=== PATIENT | male | born 1955 | race Asian ===

== ENCOUNTER → 2017-11-01 | Outpatient (CLI) | payer BC ==
[2017-11-01 09:57] LABS: BASOPHILS % 0.8 % (0.0-2.0); EOSINOPHILS % 6.5 % (0.0-5.0); HEMATOCRIT. 45.2 % (42.0-52.0); HEMOGLOBIN. 15.2 g/dL (14.0-18.0); LYMPHOCYTES % 31.6 % (20.0-50.0); MEAN PLATELET VOLUME 8.4 fl (7.4-10.4); MONOCYTES % 9.6 % (2.0-8.0); NEUTROPHILS % 51.5 % (40.0-76.0); PLATELET 223 x1000/uL (130-400); RED BLOOD CELL COUNT 4.91 mill/uL (4.7-6.1); RED CELL DISTRIBUTION WIDTH 12.7 % (11.6-14.6)
[2017-11-01 10:17] LABS: CARBON DIOXIDE 29 mEq/L (21-32); CHLORIDE 109 mEq/L (98-107); HDL CHOLESTEROL 30 mg/dL (40-59); LDL CHOLESTEROL 76 mg/dL (5-100)
== END | disposition home or self-care (01) ==
LOC: LAB 09:07
PROVIDERS: ATTEND Family Medicine
DX: I10 Essential (primary) hypertension (principal); E78.5 Hyperlipidemia, unspecified
CPT/HCPCS: 36415; 80053; 80061; 85025

== ENCOUNTER 2018-04-02 20:09 | Inpatient (IN) | payer BC ==
[~2018-04-02] VITALS: Ht 167.6 cm; Wt 63.5 kg
[2018-04-02] MEDS ORDERED: ALBUTEROL (0.083%) 2.5MG/3ML NEB HHN STA (21:36)
[2018-04-02] MEDS ORDERED: IPRATROPIUM BROMIDE (0.02%) 0.5MG/2.5ML NEB HHN STA (21:36)
[2018-04-02 23:17] LABS: BASOPHILS % 0.7 % (0.0-2.0); EOSINOPHILS % 1.6 % (0.0-5.0); HEMOGLOBIN. 15.4 g/dL (14.0-18.0); LYMPHOCYTES % 25.2 % (20.0-50.0); MEAN CORPUSCULAR HEMOGLOBIN 31.4 pg (28.0-32.0); MEAN CORPUSCULAR VOLUME 93.9 fL (80.0-94.0); MEAN PLATELET VOLUME 8.4 fl (7.4-10.4); MONOCYTES % 9.8 % (2.0-8.0); NEUTROPHILS % 62.7 % (40.0-76.0); PLATELET 235 x1000/uL (130-400); RED CELL DISTRIBUTION WIDTH 13.6 % (11.6-14.6)
[2018-04-02 23:19] LABS: CHLORIDE 108 mEq/L (98-107)
[2018-04-02] MEDS ORDERED: AZITHROMYCIN 500 MG in DEXT 5% WATER 250 ML IV SCH (23:45)
[2018-04-02] MEDS ORDERED: CEFTRIAXONE 2 G PREMIX 50 ML IV ONE (23:45)
[2018-04-03] VITALS (7 sets, daily range): BP systolic 103–134; BP diastolic 55–90
[2018-04-03] MEDS ORDERED: IOHEXOL-350 100 ML BOTTLE ONE (02:25)
[2018-04-03] MEDS ORDERED: AMLO10TA4 PO (04:31)
[2018-04-03] MEDS ORDERED: LATA2.5D2 EACHEYE (04:31)
[2018-04-03] MEDS ORDERED: LIP40 PO (04:31)
[2018-04-03] MEDS ORDERED: ASPI-1159 PO (04:31)
[2018-04-03] MEDS ORDERED: CEFTRIAXONE 1 G PREMIX 50 ML IV SCH (04:45)
[2018-04-03] MEDS: ACETAMINOPHEN 325MG TABLET PO PRN ×2 (04:59→21:18)
[2018-04-03] MEDS ORDERED: ENOXAPARIN 40MG/0.4ML SYR SUBCUT SCH (09:00)
[2018-04-03] MEDS ORDERED: ASPIRIN 81MG EC TABLET PO SCH (09:00)
[2018-04-03] MEDS: AMLODIPINE 10MG TABLET PO SCH (11:39)
[2018-04-03] MEDS ORDERED: ATORVASTATIN CALCIUM 40MG TABLET PO SCH (21:00)
[2018-04-03] MEDS: LATANOPROST 0.005% OPHTH DROPS 2.5ML EACHEYE SCH (21:07)
[2018-04-03] MEDS: CEFTRIAXONE 1 G PREMIX 50 ML IV SCH (22:35)
[2018-04-03] MEDS: ZOLPIDEM TARTRATE 5MG TABLET PO PRN (23:29)
[2018-04-03] MEDS: AZITHROMYCIN 500 MG in DEXT 5% WATER 250 ML IV SCH (23:29)
[2018-04-04] VITALS: BP 109/66
[2018-04-04 04:00] VITALS: BP 114/62
[2018-04-04 06:37] LABS: BASOPHILS % 0.9 % (0.0-2.0); EOSINOPHILS % 6.9 % (0.0-5.0); HEMATOCRIT. 40.5 % (42.0-52.0); HEMOGLOBIN. 13.6 g/dL (14.0-18.0); LYMPHOCYTES % 38.4 % (20.0-50.0); MEAN CORPUSCULAR HEMOGLOBIN 31.7 pg (28.0-32.0); MEAN CORPUSCULAR VOLUME 94.2 fL (80.0-94.0); MEAN PLATELET VOLUME 8.7 fl (7.4-10.4); MONOCYTES % 11.8 % (2.0-8.0); PLATELET 203 x1000/uL (130-400); RED BLOOD CELL COUNT 4.29 mill/uL (4.7-6.1); RED CELL DISTRIBUTION WIDTH 13.2 % (11.6-14.6)
[2018-04-04 08:00] VITALS: BP 115/63
[2018-04-04] MEDS: ACETAMINOPHEN 325MG TABLET PO PRN (08:42)
[2018-04-04] MEDS: AMLODIPINE 10MG TABLET PO SCH (08:42)
[2018-04-04 12:00] VITALS: BP 106/52
[2018-04-04 16:00] VITALS: BP 93/43
[2018-04-04 20:00] VITALS: BP 120/66
[2018-04-04] MEDS: LATANOPROST 0.005% OPHTH DROPS 2.5ML EACHEYE SCH (22:21)
[2018-04-04] MEDS: CEFTRIAXONE 1 G PREMIX 50 ML IV SCH (22:21)
[2018-04-04] MEDS: ZOLPIDEM TARTRATE 5MG TABLET PO PRN (23:22)
[2018-04-04] MEDS: AZITHROMYCIN 500 MG in DEXT 5% WATER 250 ML IV SCH (23:22)
[2018-04-04] MEDS: ATORVASTATIN CALCIUM 20MG TABLET PO SCH (23:23)
[2018-04-05] VITALS: BP 108/72
[2018-04-05] MEDS: ACETAMINOPHEN 325MG TABLET PO PRN (00:57)
[2018-04-05 04:00] VITALS: BP 112/65
[2018-04-05 08:00] VITALS: BP 105/49
[2018-04-05] MEDS: AMLODIPINE 10MG TABLET PO SCH (08:21)
[2018-04-05 11:34] VITALS: BP 115/70
[2018-04-05 16:00] VITALS: BP 122/70
[2018-04-05 20:00] VITALS: BP 117/69
[2018-04-05] MEDS: ATORVASTATIN CALCIUM 20MG TABLET PO SCH (21:48)
[2018-04-05] MEDS: LATANOPROST 0.005% OPHTH DROPS 2.5ML EACHEYE SCH (21:49)
[2018-04-05] MEDS: AZITHROMYCIN 500 MG TABLET PO SCH (23:15)
[2018-04-05] MEDS: CEFTRIAXONE 1 G PREMIX 50 ML IV SCH (23:15)
[2018-04-06] VITALS: BP 103/57
[2018-04-06] MEDS: ZOLPIDEM TARTRATE 5MG TABLET PO PRN (01:08)
[2018-04-06 04:00] VITALS: BP 114/70
[2018-04-06 08:00] VITALS: BP 119/68
[2018-04-06] MEDS: AMLODIPINE 10MG TABLET PO SCH (09:31)
[2018-04-06 12:00] VITALS: BP 116/68
[2018-04-06] MEDS: ACETAMINOPHEN 325MG TABLET PO PRN (14:46)
[2018-04-06 16:00] VITALS: BP 112/53
[2018-04-06 20:00] VITALS: BP 127/74
[2018-04-06] MEDS: ATORVASTATIN CALCIUM 20MG TABLET PO SCH (21:27)
[2018-04-06] MEDS: LATANOPROST 0.005% OPHTH DROPS 2.5ML EACHEYE SCH (21:28)
[2018-04-06] MEDS: CEFTRIAXONE 1 G PREMIX 50 ML IV SCH (23:15)
[2018-04-06] MEDS: AZITHROMYCIN 500 MG TABLET PO SCH (23:15)
[2018-04-07] VITALS: BP 125/61
[2018-04-07] MEDS: ZOLPIDEM TARTRATE 5MG TABLET PO PRN (00:24)
[2018-04-07 04:00] VITALS: BP 121/61
[2018-04-07] MEDS: AMLODIPINE 10MG TABLET PO SCH (08:32)
[2018-04-07 08:45] VITALS: BP 106/59
[2018-04-07 12:49] VITALS: BP 128/76
[2018-04-07 16:50] VITALS: BP 154/74
[2018-04-07 19:49] VITALS: BP 120/61
[2018-04-07] MEDS: LATANOPROST 0.005% OPHTH DROPS 2.5ML EACHEYE SCH (20:40)
[2018-04-07] MEDS: ATORVASTATIN CALCIUM 20MG TABLET PO SCH (20:40)
[2018-04-07] MEDS ORDERED: ZOLPIDEM TARTRATE 5MG TABLET PO PRN (21:00)
[2018-04-07] MEDS: AZITHROMYCIN 500 MG TABLET PO SCH (23:03)
[2018-04-08] VITALS: BP 128/65
[2018-04-08 04:00] VITALS: BP 111/67
[2018-04-08 08:00] VITALS: BP 114/66
[2018-04-08] MEDS: AMLODIPINE 5MG TABLET PO SCH (09:32)
[2018-04-08 12:00] VITALS: BP 111/51
[2018-04-08 13:06] LABS: QFT MITOGEN VALUE 8.04 IU/mL (.); QFT TB AG MINUS NIL VALUE 1.39 IU/mL (.); QFT TB AG VALUE 1.44 IU/mL (.); QFT TB GOLD Positive (Negative)
[2018-04-08 16:00] VITALS: BP 114/56
[2018-04-08 20:00] VITALS: BP 124/58
[2018-04-08] MEDS: ATORVASTATIN CALCIUM 20MG TABLET PO SCH (21:27)
[2018-04-08] MEDS: LATANOPROST 0.005% OPHTH DROPS 2.5ML EACHEYE SCH (21:27)
[2018-04-08] MEDS ORDERED: ZOLPIDEM TARTRATE 5MG TABLET PO PRN (21:45)
[2018-04-08] MEDS: AZITHROMYCIN 500 MG TABLET PO SCH (22:52)
[2018-04-09] VITALS: BP 107/61
[2018-04-09 04:00] VITALS: BP 108/64
[2018-04-09 07:25] LABS: BASOPHILS % 0.8 % (0.0-2.0); EOSINOPHILS % 7.4 % (0.0-5.0); HEMATOCRIT. 42.4 % (42.0-52.0); HEMOGLOBIN. 14.4 g/dL (14.0-18.0); LYMPHOCYTES % 24.1 % (20.0-50.0); MEAN CORPUSCULAR HEMOGLOBIN 31.6 pg (28.0-32.0); MEAN CORPUSCULAR VOLUME 93.2 fL (80.0-94.0); MEAN PLATELET VOLUME 8.3 fl (7.4-10.4); MONOCYTES % 9.4 % (2.0-8.0); NEUTROPHILS % 58.3 % (40.0-76.0); PLATELET 244 x1000/uL (130-400); RED BLOOD CELL COUNT 4.55 mill/uL (4.7-6.1)
[2018-04-09 08:00] VITALS: BP 115/57
[2018-04-09 08:13] LABS: CHLORIDE 109 mEq/L (98-107)
[2018-04-09] MEDS: AMLODIPINE 5MG TABLET PO SCH (08:31)
[2018-04-09 08:57] LABS: HDL CHOLESTEROL 30 mg/dL (40-59)
[2018-04-09 08:58] LABS: LDL CHOLESTEROL 63 mg/dL (5-100)
[2018-04-09 12:00] VITALS: BP 126/63
[2018-04-09 13:14] VITALS: BP 126/63
== END 2018-04-09 14:15 | disposition home or self-care (01) | DRG 204 ==
LOC: ER 23:33 → 6WST 04-03 01:13
PROVIDERS: ADMIT Internal Medicine Critical Care Medicine; ATTEND Internal Medicine Critical Care Medicine
DX: R04.2 Hemoptysis (principal); E78.00 Pure hypercholesterolemia, unspecified; E78.5 Hyperlipidemia, unspecified; F17.210 Nicotine dependence, cigarettes, uncomplicated; H40.9 Unspecified glaucoma; I10 Essential (primary) hypertension; G89.29 Other chronic pain; M54.5 Low back pain; Z91.81 History of falling; Z87.81 Personal history of (healed) traumatic fracture
CPT/HCPCS: 36415; 71045; 71275; 80053; 80061; 82378; 83605; 83690; 83880; 84484; 85025; 86480; 87040; 87070; 87116; 88108; 88312; 93005; 94640; 96365; 99285; J0456; J0696; J7050; J7060; J7611; Q9967

== ENCOUNTER → 2018-04-18 | Outpatient (CLI) | payer BC ==
[~2018-04-18] MED LIST: AMLO10TA4 PO; LATA2.5D2 EACHEYE; LIP40 PO
[2018-04-18 18:15] LABS: BASOPHILS % 0.5 % (0.0-2.0); EOSINOPHILS % 3.1 % (0.0-5.0); HEMATOCRIT. 42.1 % (42.0-52.0); HEMOGLOBIN. 14.2 g/dL (14.0-18.0); LYMPHOCYTES % 20.6 % (20.0-50.0); MEAN CORPUSCULAR HEMOGLOBIN 31.6 pg (28.0-32.0); MEAN CORPUSCULAR VOLUME 93.7 fL (80.0-94.0); MEAN PLATELET VOLUME 8.2 fl (7.4-10.4); MONOCYTES % 9.5 % (2.0-8.0); NEUTROPHILS % 66.3 % (40.0-76.0); PLATELET 247 x1000/uL (130-400); RED CELL DISTRIBUTION WIDTH 13.3 % (11.6-14.6)
[2018-04-18 18:27] LABS: CHLORIDE 109 mEq/L (98-107)
== END | disposition home or self-care (01) ==
LOC: LAB 17:35
PROVIDERS: ATTEND Internal Medicine Critical Care Medicine
DX: M10.072 Idiopathic gout, left ankle and foot (principal); M06.9 Rheumatoid arthritis, unspecified
CPT/HCPCS: 36415; 80048; 84550; 85025; 85651

== ENCOUNTER → 2019-01-18 | Outpatient (CLI) | payer BC ==
[2019-01-18 09:11] LABS: BASOPHILS % 0.9 % (0.0-2.0); EOSINOPHILS % 5.6 % (0.0-5.0); HEMATOCRIT. 46.7 % (42.0-52.0); HEMOGLOBIN. 15.9 g/dL (14.0-18.0); LYMPHOCYTES % 27.7 % (20.0-50.0); MEAN CORPUSCULAR HEMOGLOBIN 32.1 pg (28.0-32.0); MEAN CORPUSCULAR VOLUME 94.3 fL (80.0-94.0); MEAN PLATELET VOLUME 8.1 fl (7.4-10.4); MONOCYTES % 10.7 % (2.0-8.0); NEUTROPHILS % 55.1 % (40.0-76.0); PLATELET 227 x1000/uL (130-400); RED BLOOD CELL COUNT 4.95 mill/uL (4.7-6.1); RED CELL DISTRIBUTION WIDTH 13.9 % (11.6-14.6)
[2019-01-18 09:49] LABS: CHLORIDE 109 mEq/L (98-107)
[2019-01-18 10:14] LABS: LDL CHOLESTEROL 89 mg/dL (5-100)
[2019-01-18 10:18] LABS: HDL CHOLESTEROL 32 mg/dL (40-59)
== END | disposition home or self-care (01) ==
LOC: LAB 08:24
PROVIDERS: ATTEND Internal Medicine Critical Care Medicine
DX: I10 Essential (primary) hypertension (principal); Z87.891 Personal history of nicotine dependence
CPT/HCPCS: 36415; 80061; 82306; 84153; 84550; G0103

== ENCOUNTER → 2019-04-05 | Outpatient (CLI) | payer BC | END | disposition home or self-care (01) | LOC: LAB 12:34 | PROVIDERS: ATTEND Otolaryngology Otolaryngology/Facial Plastic Surgery | DX: D37.09 Neoplasm of uncertain behavior of other specified sites of the oral cavity (principal); K13.79 Other lesions of oral mucosa | CPT/HCPCS: 88305 ==

== ENCOUNTER → 2019-05-31 | Outpatient (CLI) | payer BC ==
[2019-05-31 17:31] LABS: CLARITY URINE CLEAR (CLEAR); COLOR URINE YELLOW (YELLOW); KETONES URINE NEGATIVE (NEGATIVE); LEUKOCYTE ESTERASE URINE NEGATIVE (NEGATIVE); NITRITE URINE NEGATIVE (NEGATIVE); OCCULT BLOOD URINE NEGATIVE (NEGATIVE); PH URINE 5.5 (4.5-8.0); PROTEIN URINE NEGATIVE (NEGATIVE); SPECIFIC GRAVITY URINE 1.011 (1.005-1.030); UROBILINOGEN URINE 0.2 E.U./dL (0.2-1.0)
[2019-05-31 18:08] LABS: CHLORIDE 109 mEq/L (98-107)
[2019-05-31 18:11] LABS: PROTHROMBIN TIME 10.3 sec (9.6-11.0)
[2019-05-31 18:15] LABS: BASOPHILS % 0.7 % (0.0-2.0); EOSINOPHILS % 5.9 % (0.0-5.0); HEMATOCRIT. 45.1 % (42.0-52.0); HEMOGLOBIN. 15.4 g/dL (14.0-18.0); LYMPHOCYTES % 35.9 % (20.0-50.0); MEAN CORPUSCULAR HEMOGLOBIN 31.8 pg (28.0-32.0); MEAN CORPUSCULAR VOLUME 93.3 fL (80.0-94.0); MEAN PLATELET VOLUME 8.5 fl (7.4-10.4); MONOCYTES % 13.5 % (2.0-8.0); PLATELET 211 x1000/uL (130-400); RED BLOOD CELL COUNT 4.84 mill/uL (4.7-6.1); RED CELL DISTRIBUTION WIDTH 13.6 % (11.6-14.6)
== END | disposition home or self-care (01) ==
LOC: LAB 16:56
PROVIDERS: ATTEND Internal Medicine Critical Care Medicine
DX: I10 Essential (primary) hypertension (principal); R31.9 Hematuria, unspecified
CPT/HCPCS: 36415; 80048; 81003

== ENCOUNTER → 2019-06-01 | Outpatient (CLI) | payer BC | END | disposition home or self-care (01) | LOC: US 10:07 | PROVIDERS: ATTEND Internal Medicine Critical Care Medicine | DX: K80.20 Calculus of gallbladder without cholecystitis without obstruction (principal); N40.0 Benign prostatic hyperplasia without lower urinary tract symptoms | CPT/HCPCS: 76770 ==

== ENCOUNTER → 2019-07-20 | Outpatient (CLI) | payer BC | END | disposition home or self-care (01) | LOC: LAB 11:12 | PROVIDERS: ATTEND Urology | DX: R31.0 Gross hematuria (principal) | CPT/HCPCS: 36415; 82565; 84520 ==

== ENCOUNTER → 2019-07-26 | Outpatient (CLI) | payer BC ==
[~2019-07-26] MED LIST changes: +IOHEXOL-300 100 ML BOTTLE ONE
== END | disposition home or self-care (01) ==
LOC: CT 10:12
PROVIDERS: ATTEND Urology
DX: K80.20 Calculus of gallbladder without cholecystitis without obstruction (principal); R31.0 Gross hematuria
CPT/HCPCS: 74178; Q9967

== ENCOUNTER → 2019-10-02 | Outpatient (CLI) | payer BC ==
[~2019-10-02] MED LIST changes: -IOHEXOL-300 100 ML BOTTLE ONE
[2019-10-02 10:28] LABS: CHLORIDE 109 mEq/L (98-107)
[2019-10-02 10:33] LABS: BASOPHILS % 1.1 % (0.0-2.0); EOSINOPHILS % 6.4 % (0.0-5.0); HEMATOCRIT. 47.9 % (42.0-52.0); HEMOGLOBIN. 16.3 g/dL (14.0-18.0); LYMPHOCYTES % 24.6 % (20.0-50.0); MEAN CORPUSCULAR VOLUME 94.1 fL (80.0-94.0); MEAN PLATELET VOLUME 8.4 fl (7.4-10.4); MONOCYTES % 11.6 % (2.0-8.0); NEUTROPHILS % 56.3 % (40.0-76.0); PLATELET 226 x1000/uL (130-400); RED CELL DISTRIBUTION WIDTH 13.2 % (11.6-14.6)
[2019-10-02 10:35] LABS: LDL CHOLESTEROL 97 mg/dL (5-100)
[2019-10-02 10:37] LABS: HDL CHOLESTEROL 31 mg/dL (40-59); T4 FREE 1.17 ng/dL (0.76-1.46)
[2019-10-04 09:09] LABS: RF PROFILE < 10.0 IU/mL (0.0-13.9)
[2019-10-04 13:06] LABS: ANTI-NUCLEAR ANTIBODIES DIRECT Negative (Negative)
== END | disposition home or self-care (01) ==
LOC: LAB 09:56
PROVIDERS: ATTEND Internal Medicine Endocrinology, Diabetes & Metabolism
DX: I10 Essential (primary) hypertension (principal); E78.5 Hyperlipidemia, unspecified; M10.9 Gout, unspecified; R51 Headache
CPT/HCPCS: 36415; 80061; 83036; 84439; 84443; 84550; 85651; 86038; 86200; 86431

== ENCOUNTER → 2020-02-27 | Outpatient (CLI) | payer BC ==
[2020-02-27 09:48] LABS: EOSINOPHILS % 5.4 % (0.0-5.0); HEMATOCRIT. 45.7 % (42.0-52.0); LYMPHOCYTES % 29.1 % (20.0-50.0); MEAN CORPUSCULAR HEMOGLOBIN 32.2 pg (28.0-32.0); MEAN CORPUSCULAR VOLUME 92.2 fL (80.0-94.0); MEAN PLATELET VOLUME 8.4 fl (7.4-10.4); MONOCYTES % 12.4 % (2.0-8.0); NEUTROPHILS % 52.1 % (40.0-76.0); PLATELET 202 x1000/uL (130-400); RED BLOOD CELL COUNT 4.95 mill/uL (4.7-6.1); RED CELL DISTRIBUTION WIDTH 13.6 % (11.6-14.6)
[2020-02-27 09:55] LABS: CHLORIDE 108 mEq/L (98-107)
[2020-02-27 10:02] LABS: LDL CHOLESTEROL 78 mg/dL (5-100)
[2020-02-27 10:04] LABS: HDL CHOLESTEROL 28 mg/dL (40-59)
[2020-02-27 10:05] LABS: CLARITY URINE CLEAR (CLEAR); COLOR URINE YELLOW (YELLOW); KETONES URINE NEGATIVE (NEGATIVE); LEUKOCYTE ESTERASE URINE NEGATIVE (NEGATIVE); NITRITE URINE NEGATIVE (NEGATIVE); OCCULT BLOOD URINE NEGATIVE (NEGATIVE); PH URINE 5.5 (4.5-8.0); PROTEIN URINE NEGATIVE (NEGATIVE); SPECIFIC GRAVITY URINE 1.007 (1.005-1.030); UROBILINOGEN URINE 0.2 E.U./dL (0.2-1.0)
== END | disposition home or self-care (01) ==
LOC: LAB 09:01
PROVIDERS: ATTEND Internal Medicine Endocrinology, Diabetes & Metabolism
DX: I10 Essential (primary) hypertension (principal); M10.9 Gout, unspecified; R31.9 Hematuria, unspecified
CPT/HCPCS: 36415; 80053; 80061; 81003; 84550; 85025